=== PATIENT | female | born 1970 | race Caucasian/White ===

== ENCOUNTER 2018-05-18 22:43 | Emergency (ER) | payer SELFPAY ==
--- NOTE | 2018-05-18 23:28 | ER Document Report ---
ED General - General Chief Complaint: Psych Problem Stated Complaint: BEHAVIORAL Time Seen by Provider: 05/18/18 23:15 - HPI Notes: Patient is a 48-year-old female that presents to the emergency department for chief complaint of aggressive behavior towards family. Patient was brought in by EMS from home. Her called stating that she has had aggressive and combative behavior towards him as well as mental status declined. He states over the last few months she has had increasing confusion and bizarre behaviors. He is not sure of her previous psychiatric history. Patient tells me that she is here so that he can have an affair. 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 Patient has no complaints currently. Past Medical History: Chronic back pain Past Surgical History: Spinal stimulator Social History: Frequent heavy alcohol use, daily marijuana, denies tobacco Family History: Reviewed and noncontributory for presenting illness Allergies: Reviewed, see documented allergy list. REVIEW OF SYSTEMS: CONSTITUTIONAL : No fever No chills No diaphoresis No recent illness EENT: No vision changes No congestion No sore throat CARDIOVASCULAR: No chest pain No palpitations RESPIRATORY: No shortness of breath No cough No difficulty breathing GASTROINTESTINAL: No abdominal pain No nausea No vomiting No diarrhea GENITOURINARY: No dysuria No hematuria No difficulty urinating MUSCULOSKELETAL: No back pain No leg pain No arm pain SKIN: No rashes No lesions LYMPHATIC: No swollen, enlarged glands. NEUROLOGICAL: No lightheadedness No headache No weakness No paresthesias PSYCHIATRIC: No anxiety No depression PHYSICAL EXAMINATION: Vital signs reviewed, nursing noted reviewed. GENERAL: Well-appearing, well-nourished and in no acute distress. HEAD: Atraumatic, normocephalic. EYES: Eyes appear normal, extraocular movements intact, sclera anicteric, conjunctiva are normal. ENT: nares patent, oropharynx clear without exudates. Moist mucous membranes. NECK: Normal range of motion, supple without lymphadenopathy LUNGS: Breath sounds clear to auscultation bilaterally and equal. No wheezes rales or rhonchi. HEART: Regular rate and rhythm without murmurs ABDOMEN: Soft, nontender, normoactive bowel sounds. No rebound, guarding, or rigidity. No masses appreciated. EXTREMITIES: Nontender, good range of motion, no pitting or edema. NEUROLOGICAL: No focal neurological deficits. Moves all extremities spontaneously Motor and sensory grossly intact on exam. PSYCH: Agitated, fidgety, flight of ideas, rapid pressured speech, intermittently tearful SKIN: Warm, Dry, normal turgor, no rashes or lesions noted on exposed skin - Related Data Allergies/Adverse Reactions: codeine Allergy (Verified 05/18/18 22:52) Past Medical History - Social History Smoking Status: Never Smoker Frequency of alcohol use: Heavy Drug Abuse: Marijuana Family History: Reviewed & Not Pertinent Patient has suicidal ideation: No Patient has homicidal ideation: No Renal/ Medical History: Denies: Hx Peritoneal Dialysis Physical Exam - Vital signs Vitals: Temp Pulse Resp BP Pulse Ox 97.5 F 94 18 131/85 H 94 05/18/18 23:15 05/18/18 23:15 05/18/18 23:15 05/18/18 23:15 05/18/18 23:15 Course - Re-evaluation Re-evalutation: 05/18/18 23:27 Vitals reviewed. Nursing notes reviewed. Patient presented with paranoid behavior and flight of ideas. She is speaking about the police wanting to take her children because she makes good football players. She is also frequently stating that her is cheating on her and that is why he called the police today. She is rambling about making hookers but most of her speech is tangential and difficult to follow. 05/19/18 02:07 Patient's lab work is unremarkable. She does have acute alcohol intoxication w ith a blood alcohol level of 122. Urinalysis shows acute urinary tract infection that was treated with IV Rocephin in the ED. Patient is medically cleared for further psych evaluation in the morning. She has continued to have bizarre behavior and paranoid thoughts. Laboratory 05/18/18 05/18/18 05/19/18 23:37 23:37 01:07 WBC 8.8 RBC 4.47 Hgb 15.2 Hct 43.3 MCV 97 MCH 34.1 H MCHC 35.2 RDW 13.6 Plt Count 295 Seg Neutrophils % 53.4 Lymphocytes % 35.5 Monocytes % 8.6 Eosinophils % 1.9 Basophils % 0.6 Absolute Neutrophils 4.7 Absolute Lymphocytes 3.1 Absolute Monocytes 0.8 Absolute Eosinophils 0.2 Absolute Basophils 0.1 Sodium Potassium Chloride Carbon Dioxide Anion Gap BUN Creatinine Est GFR ( Amer) Est GFR (Non-Af Amer) Glucose Calcium Total Bilirubin Direct Bilirubin Neonat Total Bilirubin Neonat Direct Bilirubin Neonat Indirect Bili AST ALT Alkaline Phosphatase Total Protein Albumin Urine Color YELLOW Urine Appearance CLOUDY Urine pH 6.0 Ur Specific [place] 1.006 Urine Protein NEGATIVE Urine Glucose (UA) NEGATIVE Urine Ketones NEGATIVE Urine Blood SMALL H Urine Nitrite NEGATIVE Urine Bilirubin NEGATIVE Urine Urobilinogen NEGATIVE Ur Leukocyte Esterase LARGE H Urine WBC (Auto) 36 Urine RBC (Auto) 1 Urine Bacteria (Auto) TRACE Urine WBC Clumps FEW Squamous Epi Cells Auto 4 Urine Mucus (Auto) RARE Urine Ascorbic Acid NEGATIVE Salicylates Urine Opiates Screen NEGATIVE Urine Methadone Screen NEGATIVE Acetaminophen Ur Barbiturates Screen NEGATIVE Ur Phencyclidine Scrn NEGATIVE Ur Amphetamines Screen NEGATIVE U Benzodiazepines Scrn NEGATIVE Urine Cocaine Screen NEGATIVE U Marijuana (THC) Screen UNCONFIRMED POSITIVE Serum Alcohol 05/19/18 01:07 WBC RBC Hgb Hct MCV MCH MCHC RDW Plt Count Seg Neutrophils % Lymphocytes % Monocytes % Eosinophils % Basophils % Absolute Neutrophils Absolute Lymphocytes Absolute Monocytes Absolute Eosinophils Absolute Basophils Sodium 142.3 Potassium 3.9 Chloride 104 Carbon Dioxide 25 Anion Gap 13 BUN 9 Creatinine 0.75 Est GFR ( Amer) > 60 Est GFR (Non-Af Amer) > 60 Glucose 114 H Calcium 10.1 Total Bilirubin 0.4 Direct Bilirubin 0.2 Neonat Total Bilirubin Not Reportable Neonat Direct Bilirubin Not Reportable Neonat Indirect Bili Not Reportable AST 110 H ALT 113 H Alkaline Phosphatase 76 Total Protein 7.7 Albumin 4.9 Urine Color Urine Appearance Urine pH Ur Specific [place] Urine Protein Urine Glucose (UA) Urine Ketones Urine Blood Urine Nitrite Urine Bilirubin Urine Urobilinogen Ur Leukocyte Esterase Urine WBC (Auto) Urine RBC (Auto) Urine Bacteria (Auto) Urine WBC Clumps Squamous Epi Cells Auto Urine Mucus (Auto) Urine Ascorbic Acid Salicylates < 1.0 L Urine Opiates Screen Urine Methadone Screen Acetaminophen < 10 L Ur Barbiturates Screen Ur Phencyclidine Scrn Ur Amphetamines Screen U Benzodiazepines Scrn Urine Cocaine Screen U Marijuana (THC) Screen Serum Alcohol 122 - Vital Signs Vital signs: Temp Pulse Resp BP Pulse Ox 97.5 F 94 18 131/85 H 94 05/18/18 23:15 05/18/18 23:15 05/18/18 23:15 05/18/18 23:15 05/18/18 23:15 - Laboratory Result Diagrams: 05/19/18 01:07 05/19/18 01:07 Laboratory results interpreted by me: 05/18/18 05/19/18 05/19/18 23:37 01:07 01:07 MCH 34.1 H Glucose 114 H AST 110 H ALT 113 H Urine Blood SMALL H Ur Leukocyte Esterase LARGE H Salicylates < 1.0 L Acetaminophen < 10 L - EKG Interpretation by Me Additional EKG results interpreted by me: 05/19/18 00:01 Interpreted by myself [id number]: Normal sinus rhythm, rate 72, normal axis, no ectopy, no ST elevation, QTc 443 Discharge - Discharge Clinical Impression: Acute UTI
[2018-05-18 23:55] LABS: APPEARANCE,URINE CLOUDY; BILIRUBIN,URINE NEGATIVE (NEGATIVE); COLOR,URINE YELLOW; GLUCOSE, URINE NEGATIVE (NEGATIVE); KETONES,URINE NEGATIVE (NEGATIVE); LEUKOCYTE ESTERASE,URINE LARGE (NEGATIVE); NITRITE,URINE NEGATIVE (NEGATIVE); PROTEIN,URINE NEGATIVE (NEGATIVE); URINE SPECIFIC GRAVITY 1.006; UROBILINOGEN,URINE NEGATIVE mg/dL (<2.0)
[2018-05-19 00:08] LABS: URINE AMPHETAMINES SCREEN NEGATIVE; URINE BARBITURATES SCREEN NEGATIVE; URINE BENZODIAZEPINES SCREEN NEGATIVE; URINE COCAINE SCREEN NEGATIVE; URINE MARIJUANA (THC) SCREEN UNCONFIRMED POSITIVE; URINE METHADONE SCREEN NEGATIVE; URINE PHENCYCLIDINE SCREEN NEGATIVE
[2018-05-19] MEDS ORDERED: LORAZEPAM 1 MG TABLET PO ONE (00:22)
[2018-05-19] MEDS ORDERED: CEFTRIAXONE INJ 1000 MG VIAL IV ONE (00:23)
[2018-05-19 01:17] LABS: ABSOLUTE BASOPHILS # (AUTO) 0.1 10^3/uL (0.0-0.2); ABSOLUTE EOSINOPHILS # (AUTO) 0.2 10^3/uL (0.0-0.6); ABSOLUTE LYMPHOCYTES (AUTO) 3.1 10^3/uL (0.5-4.7); ABSOLUTE MONOCYTES (AUTO) 0.8 10^3/uL (0.1-1.4); ABSOLUTE NEUT (AUTO) 4.7 10^3/uL (1.7-8.2); BASOPHILS % (AUTO) 0.6 % (0-2); EOSINOPHILS % (AUTO) 1.9 % (0-6); HEMATOCRIT 43.3 % (36.0-47.0); HEMOGLOBIN 15.2 g/dL (12.0-15.5); LYMPHOCYTES % (AUTO) 35.5 % (13-45); MEAN CORPUSCULAR HEMOGLOBIN 34.1 pg (27.0-33.4); MEAN CORPUSCULAR HGB CONC 35.2 g/dL (32.0-36.0); MEAN CORPUSCULAR VOLUME 97 fl (80-97); MONOCYTES % (AUTO) 8.6 % (3-13); PLATELET COUNT 295 10^3/uL (150-450); RED BLOOD COUNT 4.47 10^6/uL (3.72-5.28); RED CELL DISTRIBUTION WIDTH 13.6 % (11.5-14.0); SEGMENTED NEUTROPHILS % (AUTO) 53.4 % (42-78); TOTAL CELLS COUNTED % (AUTO) 100 %; WHITE BLOOD COUNT 8.8 10^3/uL (4.0-10.5)
[2018-05-19 01:35] LABS: ALANINE AMINOTRANSFERASE 113 U/L (9-52); ALBUMIN 4.9 g/dL (3.5-5.0); ALCOHOL 122 mg/dL (NONE DETECTED); ALKALINE PHOSPHATASE 76 U/L (38-126); ANION GAP 13 (5-19); ASPARTATE AMINO TRANSFERASE 110 U/L (14-36); BILIRUBIN,DIRECT 0.2 mg/dL (0.0-0.4); BILIRUBIN,TOTAL 0.4 mg/dL (0.2-1.3); BLOOD UREA NITROGEN 9 mg/dL (7-20); CALCIUM 10.1 mg/dL (8.4-10.2); CARBON DIOXIDE 25 mmol/L (22-30); CHLORIDE 104 mmol/L (98-107); GLUCOSE 114 mg/dL (75-110); POTASSIUM 3.9 mmol/L (3.6-5.0); SODIUM 142.3 mmol/L (137-145); TOTAL PROTEIN 7.7 g/dL (6.3-8.2)
[2018-05-19 01:36] LABS: ACETAMINOPHEN < 10 ug/mL (10-30); SALICYLATE < 1.0 mg/dL (2.0-20.0)
[2018-05-19] MEDS ORDERED: IBUPROFEN 600 MG TABLET PO ONE (06:48)
[2018-05-19] MEDS ORDERED: CEFTRIAXONE INJ 1000 MG VIAL IM ONE (08:46)
[2018-05-19] MEDS ORDERED: CHLORPROMAZINE HCL 50 MG TABLET PO PRN (10:00)
[2018-05-19] MEDS ORDERED: OLANZAPINE 5 MG TABLET PO SCH (10:00)
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
--- NOTE | 2018-05-19 10:03 | ER Document Report ---
Doctor's Note Notes: 05/19/18 10:02 Patient seen and examined. She complains of some pain at the site of her IM Rocephin shot, but otherwise without plaints acutely. Did have some breakfast. States she has felt slightly anxious. Admits she does not really have a plan as to what she will do when she is discharged from here. Seems to perseverate on the fact that it took multiple IV sticks to get blood from her yesterday, she becomes very frustrated during this conversation. Patient is slightly agitated but cooperative with examiner. Head is normal cephalic and atraumatic. Heart is regular rate and rhythm. Lungs are clear to auscultation bilaterally. Skin is warm and dry. Plan is for likely IVC and placement. Patient was exhibiting significant manic behavior. Medications as per psychiatric recommendation.
[2018-05-19] MEDS ORDERED: BENZTROPINE MESYLATE 1 MG TABLET PO SCH (10:15)
[2018-05-19 10:30] VITALS: BP 125/65
--- NOTE | 2018-05-19 12:39 | EKG REPORT ---
SEVERITY:- BORDERLINE ECG - SINUS RHYTHM PROBABLE LEFT ATRIAL ABNORMALITY : Confirmed by: Trinity Resendez MD 19-May-2018 12:38:30
== END 2018-05-19 12:40 ==
LOC: ER 22:43
DX: N39.0 Urinary tract infection, site not specified (principal); F12.10 Cannabis abuse, uncomplicated; F10.129 Alcohol abuse with intoxication, unspecified; Y90.6 Blood alcohol level of 120-199 mg/100 ml; R41.0 Disorientation, unspecified; Z88.5 Allergy status to narcotic agent
CPT/HCPCS: 93005; 99285; 96372; 36415; 80307 ×4; 85025; 80053; 81001; 93010; J3490; J0696